=== PATIENT | male | born 1945 | race Caucasian/White ===

== ENCOUNTER 2018-07-01 09:00 | Emergency (ER) | payer OTHER, MEDICAID ==
[2018-07-01] MEDS ORDERED: NS 1,000 ML IV ONE (09:35)
--- NOTE | 2018-07-01 09:37 | EDPHY ---
H & P Stated Complaint: dizziness Time Seen by Provider: 07/01/18 09:05 HPI/ROS: 73-year-old male presents complaining of dizziness and sweating and feeling lightheaded this morning. He denies chest pain or shortness of breath. He states he was recently admitted to [facility] for similar symptoms and was taken off his flecainide. He is concerned that discontinuing the flecainide might be contributing to his current symptoms. He recently moved from [place] to [place] just few weeks ago and has not acclimate ties to the altitude. No nausea or vomiting, no diarrhea, no fever or chills, no cough. Review of systems As per HPI General no fever no chills no weakness HEENT no eye pain no eye discharge. No eye redness, no sore throat Respiratory no cough, no shortness of breath Cardiac no chest pain, no peripheral edema GI no abdominal pain, no diarrhea, no constipation, no nausea, no vomiting no flank pain, no hematuria, no dysuria Musculoskeletal no myalgias, no joint pain Heme no easy bruising, no easy bleeding Endo no polyuria, no polydipsia Skin no rashes, no pruritus Neuro no syncope, positive dizziness, no headaches Psych is no suicidal ideation, no homicidal ideation Source: Patient Exam Limitations: No limitations - Personal History Current Tetanus Diphtheria and Acellular Pertussis (TDAP): Yes - Medical/Surgical History Hx Asthma: No Hx Chronic Respiratory Disease: No Hx Diabetes: No Hx Cardiac Disease: Yes Hx Renal Disease: No Hx Cirrhosis: No Hx Alcoholism: No Hx HIV/AIDS: No Hx Splenectomy or Spleen Trauma: No Other PMH: A-FIB, HIGH CHOL.,HTN,APPY,HERNIA, DEFIB INPLANT - Family History Significant Family History: No pertinent family hx - Social History Smoking Status: Never smoked Alcohol Use: Occasionally Drug Use: None - Physical Exam Exam: 73-year-old male, alert and oriented, diaphoretic, appears slightly pale, no respiratory distress, afebrile HEENT atraumatic normocephalic, extraocular muscles intact, anicteric Oropharynx negative for erythema negative exudate, tolerating her own secretions Poor dentition Neck supple no meningismus Lungs clear to auscultation bilaterally Heart regular rate and rhythm without murmur rub or gallop Abdomen nondistended normoactive bowel sounds soft nontender, no pulsatile mass Back no CVA tenderness, no step-offs, no spinal tenderness Extremities no cyanosis clubbing or edema Neuro alert and oriented, no focal deficits Constitutional: Initial Vital Signs Temperature (C) 36.8 C 07/01/18 09:12 Heart Rate 78 07/01/18 09:12 Respiratory Rate 14 07/01/18 09:12 Blood Pressure 146/84 H 07/01/18 09:12 O2 Sat (%) 93 07/01/18 09:12 O2 Delivery Mode Room Air Allergies/Adverse Reactions: Penicillins Allergy (Verified 07/01/18 09:07) Home Medications: Medication Instructions Recorded Aldactone 25 MG (*) 07/01/18 Eliquis 07/01/18 Lipitor 10 mg (*) 07/01/18 Toprol Xl 50 mg (*) 07/01/18 Medical Decision Making - Diagnostics EKG Interpretation: EKG normal sinus rhythm, rate 74 no ischemic changes, QTC 386, normal axis Imaging Results: Imaging Impressions Chest X-Ray 07/01/18 09:20 Impression: Central bronchitis and underlying hyperinflation. No acute pneumonia. Head CT 07/01/18 09:20 Impression: Normal noncontrast CT of the brain. Results called to Dr. Quevedo at 10:15 AM at the time of the interpretation. Chest/Thorax CTA 07/01/18 10:26 Impression: Negative CT examination of the chest for acute pulmonary thromboembolic disease. Results called to Dr. Saumya Quevedo at 11:30 AM at the time of the interpretation. ED Course/Re-evaluation: Patient seen and evaluated for dizziness that began this morning associated with sweating and a sense of fullness in his head. IV established, labs drawn, EKG done CT head negative EKG normal sinus rhythm no ischemic changes Chest x-ray within normal limits CBC within normal BMP normal Troponin negative x2 at 0 and 3 hr D-dimer elevated CT scan chest done secondary to nonspecific symptoms with elevated D-dimer and recent travel CT negative for pulmonary embolus Patient given 1 L normal saline After rest and fluids patient appeared markedly improved no longer diaphoretic no longer symptomatic. All studies were within normal limits including CT head CT chest labs EKG chest x-ray. Impression Dizziness, unknown etiology Possible mild dehydration, possible reaction to altitude Plan Discharge home Advise patient to rest and drink plenty of fluids also advise patient to contact the referrals he was given after his recent hospitalization. Differential Diagnosis: Differential diagnosis considered but not limited to: Anemia, arrhythmia, pulmonary embolus, intracranial bleeding, myocardial infarction - Data Points Laboratory Results: 07/01/18 07/01/18 07/01/18 12:16 09:33 09:32 PT INR APTT POC Sodium 144 mEq/L mEq/L (135-145) POC Potassium 3.9 mEq/L mEq/L (3.3-5.0) POC Chloride 109.0 mEq/L mEq/L (97-110) POC Total CO2 24 mEq/L mEq/L (22-31) POC BUN 13 mg/dL mg/dL (7-23) POC Creatinine 1.0 mg/dL mg/dL (0.7-1.3) POC Glucose 120 mg/dL H mg/dL (70-100) POC Lactic Acid Hermann 1.2 mmol/L mmol/L (0.7-2.1) POC Calcium 9.7 mg/dL mg/dL (8.5-10.4) POC Total Bilirubin 1.1 mg/dL mg/dL (0.1-1.4) POC AST 28 IU/L IU/L (17-59) POC ALT 22 IU/L IU/L (21-72) POC Alk Phosphatase 67 IU/L IU/L (38-126) POC Troponin I 0.00 ng/mL ng/mL (0.00-0.08) NT-Pro-B Natriuret Pep POC Total Protein 6.9 g/dL g/dL (6.3-8.2) POC Albumin 3.8 g/dL g/dL (3.5-5.0) 07/01/18 07/01/18 07/01/18 09:28 09:15 09:15 PT 14.1 SEC SEC (12.0-15.0) INR 1.07 (0.83-1.16) APTT 30.9 SEC SEC (23.0-38.0) POC Sodium POC Potassium POC Chloride POC Total CO2 POC BUN POC Creatinine POC Glucose POC Lactic Acid Hermann POC Calcium POC Total Bilirubin POC AST POC ALT POC Alk Phosphatase POC Troponin I 0.01 ng/mL ng/mL (0.00-0.08) NT-Pro-B Natriuret Pep 47 pg/mL pg/mL (0-125) POC Total Protein POC Albumin Medications Given: Discontinued Medications Sodium Chloride (Ns) 1,000 mls @ 0 mls/hr IV ONCE ONE PRN Reason: As Directed Stop: 07/01/18 09:36 Last Admin: 07/01/18 09:57 Dose: 1,000 mls Point of Care Test Results: CBC CBC Collection Date 07/01/18 CBC Collection Time 09:15 WBC 7.1 RBC 5.08 HGB 16.5 HCT 47.3 PLT 205 Neut # 5.2 Neut 73 LYMPH # 1.4 LYMPH 19.9 Other WBC # 0.5 Other WBC 7.1 MCV 93.1 Chemistry 07/01/18 07/01/18 07/01/18 12:16 09:33 09:28 POC Sodium 144 mEq/L mEq/L (135-145) POC Potassium 3.9 mEq/L mEq/L (3.3-5.0) POC Chloride 109.0 mEq/L mEq/L (97-110) POC Total CO2 24 mEq/L mEq/L (22-31) POC BUN 13 mg/dL mg/dL (7-23) POC Creatinine 1.0 mg/dL mg/dL (0.7-1.3) POC Glucose 120 mg/dL H mg/dL (70-100) POC Calcium 9.7 mg/dL mg/dL (8.5-10.4) POC Total Bilirubin 1.1 mg/dL mg/dL (0.1-1.4) POC AST 28 IU/L IU/L (17-59) POC ALT 22 IU/L IU/L (21-72) POC Alk Phosphatase 67 IU/L IU/L (38-126) POC Troponin I 0.00 ng/mL ng/mL 0.01 ng/mL ng/mL (0.00-0.08) (0.00-0.08) POC Total Protein 6.9 g/dL g/dL (6.3-8.2) POC Albumin 3.8 g/dL g/dL (3.5-5.0) Blood Gas/Lactic Acid-Venous 07/01/18 09:32 POC Lactic Acid Hermann 1.2 mmol/L mmol/L (0.7-2.1) D-Dimer D-Dimer Collection Date 07/01/18 D-Dimer Collection Time 09:15 D-Dimer (ng/ml) 788 Departure - Departure Disposition: Home, Routine, Self-Care Clinical Impression: Dizziness and giddiness Condition: Good Instructions: Near Syncope (ED), Dizziness (ED) Additional Instructions: Call the referrals given to you after your hospitalization at [facility] first thing Tuesday to arrange follow up. Rest, no heavy exertion and drink plenty of water. Referrals: NONE *PRIMARY CARE P,. [Primary Care Provider] - As per Instructions
[2018-07-01] MEDS ORDERED: IOPAMIDOL (ISOVUE 370) 100 ML BTL IV ONE (10:48)
[2018-07-01 11:06] LABS: INR 1.07 (0.83-1.16); PROTIME(PATIENT) 14.1 SEC (12.0-15.0)
[2018-07-01 12:43] VITALS: BP 120/82
== END 2018-07-01 12:39 | disposition home or self-care (01) ==
LOC: CED 09:00
DX: R42 Dizziness and giddiness (principal)
CPT/HCPCS: 70450; 71046; 71275; 96360; 99285; Q9967; 80053-PO; 83605-PO; 84484-PO